=== PATIENT | female | born 1985 | race African-American/Black ===

== ENCOUNTER 2017-04-05 02:31 | Emergency (ER) | payer OTHER | END 2017-04-05 02:35 | disposition home or self-care (01) | LOC: ER 02:31 | DX: S39.012A Strain of muscle, fascia and tendon of lower back, initial encounter (principal); F17.200 Nicotine dependence, unspecified, uncomplicated; J45.909 Unspecified asthma, uncomplicated; K21.9 Gastro-esophageal reflux disease without esophagitis; I10 Essential (primary) hypertension; Z91.040 Latex allergy status; Z88.8 Allergy status to other drugs, medicaments and biological substances; X58.XXXA Exposure to other specified factors, initial encounter | CPT/HCPCS: 99283 ==